=== PATIENT | male | born 2000 | race African-American/Black ===

== ENCOUNTER 2024-02-10 06:08 | Emergency (ER) | payer SELFPAY ==
[~2024-02-10] VITALS: Ht 180.3 cm; Wt 84.0 kg
[2024-02-10 06:15] VITALS: BP 141/92; PULSE 88; RESP 18; TEMP 97.9; O2SAT 100
[2024-02-10] MEDS: ACETAMINOPHEN WITH CODEINE 300/30MG TABLET PO NR (06:45)
[2024-02-10] MEDS: ACETAMINOPHEN WITH CODEINE 300/30MG TABLET PO ONE (06:49)
[2024-02-10] MEDS ORDERED: IBUP-2028 PO (07:05)
== END 2024-02-10 07:18 | disposition home or self-care (01) ==
LOC: ER 06:08
DX: M79.632 Pain in left forearm (principal)
CPT/HCPCS: 73090; 73120; 99284; A4565